=== PATIENT | male | born 1945 | race Hispanic/Latino ===

== ENCOUNTER → 2020-05-01 | Outpatient (CLI) | payer MEDICARE ==
[~2020-05-01] MED LIST: ARTHROTEC EC 71 EACH; CARDIZEM CD240 MG PO; DICLOFENAC SODI75 MG PO; LISINOPRIL-HCT1 EACH PO; METOPROLOL SUCC50 MG PO; REGADENOSON 0.4 MG/5 ML SYR IV ONE
== END ==
LOC: NM 08:39
PROVIDERS: ATTEND Internal Medicine Interventional Cardiology
DX: I25.119 Atherosclerotic heart disease of native coronary artery with unspecified angina pectoris (principal)
CPT/HCPCS: 78452; 93017; A9502; J2785

== ENCOUNTER → 2020-06-05 | Day surgery (SDC) | payer MEDICARE ==
[2020-05-31 12:15] LABS: BASOPHILS % 0.7 % (0.0-1.0); EOSINOPHILS # (AUTO) 0.1 (0.0-0.4); EOSINOPHILS % 2.2 % (0.0-6.0); HEMOGLOBIN 13.1 g/dL (14.0-18.0); LYMPHOCYTES # (AUTO) 1.5 (1.0-3.2); LYMPHOCYTES % 27.5 % (18.0-39.1); MEAN CORPUSCULAR HEMOGLOBIN 29.9 pg (28-32); MEAN CORPUSCULAR HGB CONC 33.6 g/dL (31-35); MONOCYTES # (AUTO) 0.6 (0.2-0.8); MONOCYTES % 10.7 % (4.4-11.3); NEUTROPHILS # (AUTO) 3.2 (2.1-6.9); NEUTROPHILS % 58.5 % (38.7-80.0); PLATELET COUNT 186 x10e3/uL (140-360); RED BLOOD COUNT 4.38 x10e6/uL (4.3-5.7); RED CELL DISTRIBUTION WIDTH 12.8 % (11.7-14.4)
[~2020-06-05] MED LIST changes: +ATORVASTATIN CA20 MG PO; +CLOPIDOGREL75 MG PO; +DIOVAN HCT 1601 EAC1 PO; +FLOMAX0.4 MG PO; +PROTONIX20 MG PO; -REGADENOSON 0.4 MG/5 ML SYR IV ONE
[2020-06-05 15:34] VITALS: BP 119/78
== END | disposition home or self-care (01) ==
LOC: OR 11:26
PROVIDERS: ATTEND Internal Medicine Gastroenterology
DX: K22.70 Barrett's esophagus without dysplasia (principal); D12.0 Benign neoplasm of cecum; D12.3 Benign neoplasm of transverse colon; D12.4 Benign neoplasm of descending colon; K29.50 Unspecified chronic gastritis without bleeding; K31.89 Other diseases of stomach and duodenum; K20.90 Esophagitis, unspecified without bleeding; K44.9 Diaphragmatic hernia without obstruction or gangrene; K57.30 Diverticulosis of large intestine without perforation or abscess without bleeding; K21.9 Gastro-esophageal reflux disease without esophagitis; K64.8 Other hemorrhoids; D50.9 Iron deficiency anemia, unspecified; I44.0 Atrioventricular block, first degree; I25.10 Atherosclerotic heart disease of native coronary artery without angina pectoris; I10 Essential (primary) hypertension; E78.5 Hyperlipidemia, unspecified; M19.90 Unspecified osteoarthritis, unspecified site; Z88.6 Allergy status to analgesic agent; Z01.810 Encounter for preprocedural cardiovascular examination; Z01.812 Encounter for preprocedural laboratory examination; Z20.822 Contact with and (suspected) exposure to COVID-19; Z79.02 Long term (current) use of antithrombotics/antiplatelets; Z95.5 Presence of coronary angioplasty implant and graft; Z80.0 Family history of malignant neoplasm of digestive organs
CPT/HCPCS: 36415; 43239; 45384; 45385; 85025; 93005; U0002; 45378

== ENCOUNTER 2020-08-06 05:20 | Observation (INO) | payer MEDICARE ==
[2020-08-02 12:15] LABS: BASOPHILS % 0.5 % (0.0-1.0); EOSINOPHILS # (AUTO) 0.2 (0.0-0.4); EOSINOPHILS % 2.6 % (0.0-6.0); HEMATOCRIT 40.5 % (38.2-49.6); HEMOGLOBIN 13.1 g/dL (14.0-18.0); LYMPHOCYTES # (AUTO) 1.7 (1.0-3.2); LYMPHOCYTES % 26.6 % (18.0-39.1); MEAN CORPUSCULAR HEMOGLOBIN 29.1 pg (28-32); MEAN CORPUSCULAR HGB CONC 32.3 g/dL (31-35); MONOCYTES # (AUTO) 0.8 (0.2-0.8); MONOCYTES % 12.3 % (4.4-11.3); NEUTROPHILS # (AUTO) 3.6 (2.1-6.9); NEUTROPHILS % 57.8 % (38.7-80.0); PLATELET COUNT 183 x10e3/uL (140-360); RED CELL DISTRIBUTION WIDTH 13.2 % (11.7-14.4)
[2020-08-02 12:34] LABS: ANION GAP 12.9 mmol/L (8-16); BLOOD UREA NITROGEN 20 mg/dL (7-26); BUN/CREATININE RATIO 19 (6-25); CALCIUM 9.1 mg/dL (8.4-10.2); CARBON DIOXIDE 26 mmol/L (22-29); CHLORIDE 104 mmol/L (98-107); CREATININE, SERUM 1.04 mg/dL (0.72-1.25); EST GLOMERULAR FILTRATION RATE > 60 ML/MIN (60-); GLUCOSE 103 mg/dL (74-118); POTASSIUM 3.9 mmol/L (3.5-5.1); SODIUM 139 mmol/L (136-145)
[~2020-08-06] VITALS: Ht 185.4 cm; Wt 99.1 kg
[2020-08-06] MEDS ORDERED: GABAPENTIN 300 MG CAP ONE (06:00)
[2020-08-06] MEDS ORDERED: DEXAMETHASONE SOD PHOS 10 MG/1 ML VIAL ONE (06:00)
[2020-08-06] MEDS ORDERED: CELECOXIB 200 MG CAP ONE (06:00)
[2020-08-06] MEDS ORDERED: CEFAZOLIN SOD 1 GM/NS 50ML 100 ML IV ONE (06:01)
[2020-08-06] MEDS ORDERED: SODIUM CHLORIDE 0.9% 500ML 500 ML ONE (06:03)
[2020-08-06] MEDS ORDERED: VANCOMYCIN HCL 1,000 MG ONE (06:03)
[2020-08-06] MEDS ORDERED: TRANEXAMIC ACID 1,000 MG/10 ML ML ONE (06:03)
[2020-08-06] MEDS ORDERED: KETOROLAC TROMETHAMINE 30 MG/ML VIAL IV PRN (08:00)
[2020-08-06] MEDS ORDERED: DIPHENHYDRAMINE HCL INJ 50 MG/ML VIAL IV PRN (08:00)
[2020-08-06] MEDS ORDERED: HYDROCODONE/APAP 5MG-325MG TAB PO PRN (08:00)
[2020-08-06] MEDS ORDERED: HYDROCODONE/APAP 7.5MG-325MG 1 EA TAB PO PRN (08:00)
[2020-08-06] MEDS ORDERED: ONDANSETRON HCL INJ 2MG/ML 2ML 2 MG/ML VIAL IV PRN (08:00)
[2020-08-06] MEDS ORDERED: ROPIVACAINE 246.25 MG, EPINEPHRINE HCL 1:1000 1ML 0.5 MG, CLONIDINE HCL 0.08 MG, KETORO... INJ ONE ×5 (08:00)
[2020-08-06] MEDS ORDERED: DOCUSATE SODIUM 100 MG CAP PO PRN (08:00)
[2020-08-06] MEDS ORDERED: ACETAMINOPHEN 650 MG SUPP PR PRN (08:00)
[2020-08-06] MEDS ORDERED: FENTANYL CITRATE/PF 100MCG/2 ML INJ ONE ×2 (08:32→13:03)
[2020-08-06] MEDS: CELECOXIB 100 MG CAP PO SCH ×2 (09:00→16:31)
[2020-08-06] MEDS: ASPIRIN 325 MG TAB PO SCH ×2 (09:00→16:31)
[2020-08-06 12:13] VITALS: BP 116/64
[2020-08-06 12:14] VITALS: BP 116/64
[2020-08-06] MEDS: SODIUM CHLORIDE 0.9% 1000ML 1,000 ML IV SCH ×2 (12:35→16:31)
[2020-08-06] MEDS ORDERED: BUPIVACAINE 0.25% 30ML SDV ONE (12:45)
[2020-08-06] MEDS ORDERED: EPINEPHRINE HCL 1:1000 1ML 1 MG/ML AMP ONE (12:45)
[2020-08-06] MEDS ORDERED: MIDAZOLAM HCL 2 MG/2 ML VIAL ONE (13:03)
[2020-08-06] MEDS: PANTOPRAZOLE SOD 40 MG TABEC PO SCH (13:46)
[2020-08-06] MEDS: CEFAZOLIN SOD 1 GM/NS 50ML 50 ML IV SCH ×2 (13:46→21:27)
[2020-08-06] MEDS ORDERED: ACETAMINOPHEN 1000 MG/100 ML IV PRN (14:00)
[2020-08-06 15:56] VITALS: BP 105/61
[2020-08-06] MEDS ORDERED: TAMSULOSIN HCL 0.4 MG CAP PO SCH (17:00)
[2020-08-06] MEDS ORDERED: LIDOCAINE HCL 2% LOCAL INJ 5 ML SDV VIAL INJ ONE (17:16)
[2020-08-06] MEDS ORDERED: SEVOFLURANE INHAL SOLN 250 ML PEN BTL ONE (17:16)
[2020-08-06] MEDS ORDERED: DEXAMETHASONE SOD PHOS INJ 4 MG/ML VIAL ONE (17:16)
[2020-08-06] MEDS ORDERED: ONDANSETRON HCL INJ 2MG/ML 2ML 2 MG/ML VIAL ONE (17:16)
[2020-08-06] MEDS ORDERED: PROPOFOL IV EMULSION 10 MG/ML 20 ML VIAL ONE (17:16)
[2020-08-06] MEDS ORDERED: LIDOCAINE HCL 2% JELLY 5 ML TUBE ONE (17:16)
[2020-08-06 19:49] VITALS: BP 114/71
[2020-08-06 19:51] VITALS: BP 114/71
[2020-08-06] MEDS ORDERED: ZOLPIDEM TARTRATE 5 MG TAB PO PRN (21:00)
[2020-08-07 00:19] VITALS: BP 130/71
[2020-08-07] MEDS: SODIUM CHLORIDE 0.9% 1000ML 1,000 ML IV SCH (03:21)
[2020-08-07 04:00] VITALS: BP 109/53
[2020-08-07 05:29] LABS: HEMATOCRIT 31.2 % (38.2-49.6); HEMOGLOBIN 10.5 g/dL (14.0-18.0)
[2020-08-07] MEDS: CEFAZOLIN SOD 1 GM/NS 50ML 50 ML IV SCH (05:39)
[2020-08-07 08:00] VITALS: BP 132/72
[2020-08-07 08:21] VITALS: BP 132/72
[2020-08-07] MEDS: ASPIRIN 325 MG TAB PO SCH (08:21)
[2020-08-07] MEDS: CELECOXIB 100 MG CAP PO SCH (08:21)
[2020-08-07] MEDS: PANTOPRAZOLE SOD 40 MG TABEC PO SCH (08:21)
[2020-08-07] MEDS ORDERED: DILTIAZEM HCL 300 MG PO SCH (09:00)
[2020-08-07] MEDS ORDERED: ONDANSETRON HCL 4 MG ORAL DISINTEGRATING TAB PO PRN (09:30)
[2020-08-07] MEDS ORDERED: ATORVASTATIN 40 MG TAB PO SCH (09:30)
[2020-08-07 11:49] VITALS: BP 125/71
[2020-08-07] MEDS ORDERED: DILTIAZEM HCL ER 120 MG CAP PO SCH (13:00)
[2020-08-07] MEDS ORDERED: DILTIAZEM HCL 180 MG CAP ER PO SCH (13:00)
== END 2020-08-07 13:15 | disposition home or self-care (01) ==
LOC: OR 05:20 → PACU V 08:01 → MED/SURG 11:48
PROVIDERS: ADMIT Specialist; ATTEND Specialist
DX: M17.0 Bilateral primary osteoarthritis of knee (principal); I10 Essential (primary) hypertension; M16.0 Bilateral primary osteoarthritis of hip; Z20.822 Contact with and (suspected) exposure to COVID-19; Z01.818 Encounter for other preprocedural examination; E78.5 Hyperlipidemia, unspecified
CPT/HCPCS: 27447; 36415 ×2; 71046; 73560; 80048; 85014; 85018; 85025; 86850; 86900; 86920; 97116 ×2; 97161; 97530; G0378 ×2; J0171; J0690 ×2; J1100 ×2; J1885; J2001 ×2; J2250; J2405; J2704; J2795; J3010; J3370; J7030; J7040; S0164 ×2; U0002

== ENCOUNTER 2021-09-02 09:48 | Observation (INO) | payer MEDICARE ==
[2021-08-29 13:35] LABS: BASOPHILS # (AUTO) 0.1 (0.0-0.1); BASOPHILS % 0.8 % (0.0-1.0); EOSINOPHILS # (AUTO) 0.1 (0.0-0.4); EOSINOPHILS % 1.4 % (0.0-6.0); HEMATOCRIT 40.3 % (38.2-49.6); LYMPHOCYTES # (AUTO) 1.4 (1.0-3.2); LYMPHOCYTES % 21.3 % (18.0-39.1); MEAN CORPUSCULAR HEMOGLOBIN 29.8 pg (28-32); MEAN CORPUSCULAR HGB CONC 32.3 g/dL (31-35); MEAN CORPUSCULAR VOLUME 92.4 fL (81-99); MONOCYTES # (AUTO) 0.7 (0.2-0.8); MONOCYTES % 10.6 % (4.4-11.3); NEUTROPHILS # (AUTO) 4.3 (2.1-6.9); NEUTROPHILS % 65.6 % (38.7-80.0); PLATELET COUNT 203 x10e3/uL (140-360); RED BLOOD COUNT 4.36 x10e6/uL (4.3-5.7); RED CELL DISTRIBUTION WIDTH 12.9 % (11.7-14.4)
[2021-08-29 13:50] LABS: ANION GAP 12.7 mmol/L (8-16); CALCIUM 8.5 mg/dL (8.4-10.2); CREATININE, SERUM 0.96 mg/dL (0.72-1.25); POTASSIUM 3.7 mmol/L (3.5-5.1)
[~2021-09-02] VITALS: Ht 185.4 cm; Wt 98.0 kg
[~2021-09-02 09:48] MED LIST changes: +ROPIVACAINE 246.25 MG, EPINEPHRINE HCL 1:1000 1ML 0.5 MG, CLONIDINE HCL 0.08 MG, KETORO... INJ ONE; +SODIUM CHLORIDE 0.9% 500ML 500 ML ONE; +TRANEXAMIC ACID 20 ML ONE; +Vancomycin IV 1,000 MG ONE
[2021-09-02] MEDS ORDERED: CELECOXIB 200 MG CAP ONE (10:06)
[2021-09-02] MEDS ORDERED: DEXAMETHASONE SOD PHOS 10 MG/1 ML VIAL ONE (10:06)
[2021-09-02] MEDS ORDERED: GABAPENTIN 300 MG CAP ONE (10:06)
[2021-09-02] MEDS ORDERED: ACETAMINOPHEN 1000 MG/100 ML IV ONE (12:03)
[2021-09-02] MEDS ORDERED: SEVOFLURANE INHAL SOLN 250 ML PEN BTL ONE (12:03)
[2021-09-02] MEDS ORDERED: POVIDONE IODINE 0.05% 0.05 % ML PO ONE (12:03)
[2021-09-02] MEDS ORDERED: EPHEDRINE SULFATE INJ 50 MG/ML VIAL ONE (12:03)
[2021-09-02] MEDS ORDERED: PROPOFOL IV EMULSION 10 MG/ML 20 ML VIAL ONE (12:03)
[2021-09-02] MEDS ORDERED: LIDOCAINE HCL 2% LOCAL INJ 5 ML SDV VIAL INJ ONE (12:03)
[2021-09-02] MEDS ORDERED: ONDANSETRON HCL INJ 2MG/ML 2ML 2 MG/ML VIAL ONE (12:03)
[2021-09-02] MEDS ORDERED: ROPIVACAINE 0.5% 5 MG/ML 30 ML SDV ONE (12:08)
[2021-09-02] MEDS ORDERED: FENTANYL CITRATE/PF 100MCG/2 ML INJ ONE (12:20)
[2021-09-02] MEDS ORDERED: MIDAZOLAM HCL 2 MG/2 ML VIAL ONE (12:20)
[2021-09-02] MEDS ORDERED: ACETAMINOPHEN 650 MG SUPP PR PRN (12:45)
[2021-09-02] MEDS ORDERED: DIPHENHYDRAMINE HCL INJ 50 MG/ML VIAL IV PRN (12:45)
[2021-09-02] MEDS ORDERED: KETOROLAC TROMETHAMINE 30 MG/ML VIAL IV PRN (12:45)
[2021-09-02] MEDS ORDERED: HYDROCODONE/APAP 7.5MG-325MG 1 EA TAB PO PRN (12:45)
[2021-09-02] MEDS ORDERED: DOCUSATE SODIUM 100 MG CAP PO PRN (12:45)
[2021-09-02] MEDS ORDERED: ONDANSETRON HCL INJ 2MG/ML 2ML 2 MG/ML VIAL IV PRN (12:45)
[2021-09-02] MEDS ORDERED: HYDROCODONE/APAP 5MG-325MG TAB PO PRN (12:45)
[2021-09-02] MEDS ORDERED: ZOLPIDEM TARTRATE 5 MG TAB PO PRN (12:45)
[2021-09-02] MEDS ORDERED: SODIUM CHLORIDE 0.9% 1000ML 1,000 ML IV SCH (12:45)
[2021-09-02 15:55] VITALS: BP 137/82
[2021-09-02 15:56] VITALS: BP 137/82
[2021-09-02 16:42] VITALS: BP 137/82
[2021-09-02] MEDS ORDERED: CELECOXIB 100 MG CAP PO SCH (17:00)
[2021-09-02] MEDS ORDERED: ASPIRIN 325 MG TAB PO SCH (17:00)
[2021-09-02] MEDS ORDERED: ACETAMINOPHEN 1000 MG/100 ML IV PRN (18:00)
[2021-09-02 21:00] VITALS: BP 107/66
== END 2021-09-02 21:07 | disposition home or self-care (01) ==
LOC: OR 09:48 → PACU V 12:56 → MED/SURG 15:14
PROVIDERS: ADMIT Specialist; ATTEND Specialist
DX: M17.0 Bilateral primary osteoarthritis of knee (principal); Z96.652 Presence of left artificial knee joint; I10 Essential (primary) hypertension; Z20.822 Contact with and (suspected) exposure to COVID-19; Z01.818 Encounter for other preprocedural examination
CPT/HCPCS: 27447; 36415; 71046; 73560; 80048; 85025; 86850; 86900; 86920; 93005; 94799; 97110; 97116; 97161; C1713 ×6; C1776 ×2; G0378; J0131; J0171; J0690; J1100; J1885; J2001; J2250; J2405; J2704; J2795; J3010; J3370; J7040; U0002

== ENCOUNTER 2021-11-01 12:07 | Emergency (ER) | payer MEDICARE ==
[~2021-11-01] VITALS: Ht 185.4 cm; Wt 98.0 kg
[~2021-11-01 12:07] MED LIST changes: -ROPIVACAINE 246.25 MG, EPINEPHRINE HCL 1:1000 1ML 0.5 MG, CLONIDINE HCL 0.08 MG, KETORO... INJ ONE; -SODIUM CHLORIDE 0.9% 500ML 500 ML ONE; -TRANEXAMIC ACID 20 ML ONE; -Vancomycin IV 1,000 MG ONE
[2021-11-01] MEDS ORDERED: SODIUM CHLORIDE 0.9% 1000ML 500 ML IV ONE (12:45)
[2021-11-01 13:16] LABS: BASOPHILS % 0.5 % (0.0-1.0); EOSINOPHILS % 0.3 % (0.0-6.0); HEMATOCRIT 38.3 % (38.2-49.6); HEMOGLOBIN 12.1 g/dL (14.0-18.0); LYMPHOCYTES # (AUTO) 0.7 (1.0-3.2); LYMPHOCYTES % 10.3 % (18.0-39.1); MEAN CORPUSCULAR HEMOGLOBIN 29.3 pg (28-32); MEAN CORPUSCULAR HGB CONC 31.6 g/dL (31-35); MEAN CORPUSCULAR VOLUME 92.7 fL (81-99); MONOCYTES # (AUTO) 0.4 (0.2-0.8); MONOCYTES % 6.1 % (4.4-11.3); NEUTROPHILS # (AUTO) 5.3 (2.1-6.9); NEUTROPHILS % 82.3 % (38.7-80.0); PLATELET COUNT 257 x10e3/uL (140-360); RED BLOOD COUNT 4.13 x10e6/uL (4.3-5.7)
[2021-11-01 13:25] LABS: CLARITY,URINE CLEAR (CLEAR); COLOR,URINE YELLOW (YELLOW)
[2021-11-01 13:26] LABS: KETONES,URINE NEGATIVE (NEGATIVE); LEUKOCYTE ESTERASE ,URINE NEGATIVE (NEGATIVE); NITRITE,URINE NEGATIVE (NEGATIVE); PROTEIN,URINE DIPSTICK NEGATIVE (NEGATIVE); RBC,URINE 0-5 /HPF (0-5); URINE UROBILINOGEN 1 mg/dL (0.2 - 1); WBC,URINE (MAN) 0-5 /HPF (0-5)
[2021-11-01 13:27] LABS: BACTERIA,URINE FEW /HPF; EPITHELIAL CELLS,URINE FEW /LPF
[2021-11-01 13:30] LABS: INR 0.98; PROTHROMBIN TIME 13.9 seconds (11.9-14.5)
[2021-11-01 13:39] LABS: ALBUMIN 3.7 g/dL (3.5-5.0); ALBUMIN/GLOBULIN RATIO 1.2 (0.8-2.0); ANION GAP 12.9 mmol/L (8-16); CALCIUM 8.5 mg/dL (8.4-10.2); CREATININE, SERUM 0.93 mg/dL (0.72-1.25); POTASSIUM 3.9 mmol/L (3.5-5.1)
[2021-11-01 14:17] VITALS: BP 121/71
== END 2021-11-01 14:10 | disposition home or self-care (01) ==
LOC: ER 12:18
DX: R53.1 Weakness (principal); I10 Essential (primary) hypertension; I25.10 Atherosclerotic heart disease of native coronary artery without angina pectoris; N40.0 Benign prostatic hyperplasia without lower urinary tract symptoms; E78.5 Hyperlipidemia, unspecified; N28.89 Other specified disorders of kidney and ureter; K21.9 Gastro-esophageal reflux disease without esophagitis; Z88.6 Allergy status to analgesic agent; Z79.02 Long term (current) use of antithrombotics/antiplatelets; Z79.899 Other long term (current) drug therapy; Z95.5 Presence of coronary angioplasty implant and graft; Z95.810 Presence of automatic (implantable) cardiac defibrillator
CPT/HCPCS: 36415; 70450; 71045; 80053; 81001; 84484; 85025; 85610; 93005; 99284; J7030

== ENCOUNTER 2023-02-20 11:55 | Inpatient (IN) | payer MEDICARE ==
[~2023-02-20] VITALS: Ht 185.4 cm; Wt 90.7 kg
[~2023-02-20 11:55] MED LIST changes: +ASPIRIN EC81 MG PO; +CALCIUM ACETAT667 MG PO
[2023-02-20 13:22] LABS: BASOPHILS % 0.7 % (0.0-1.0); EOSINOPHILS # (AUTO) 0.1 (0.0-0.4); EOSINOPHILS % 1.5 % (0.0-6.0); HEMATOCRIT 27.9 % (38.2-49.6); HEMOGLOBIN 9.1 g/dL (14.0-18.0); LYMPHOCYTES # (AUTO) 1.3 (1.0-3.2); LYMPHOCYTES % 24.2 % (18.0-39.1); MEAN CORPUSCULAR HEMOGLOBIN 29.4 pg (28-32); MEAN CORPUSCULAR HGB CONC 32.6 g/dL (31-35); MEAN CORPUSCULAR VOLUME 90.3 fL (81-99); MONOCYTES # (AUTO) 0.5 (0.2-0.8); MONOCYTES % 9.2 % (4.4-11.3); NEUTROPHILS # (AUTO) 3.5 (2.1-6.9); PLATELET COUNT 219 x10e3/uL (140-360); RED BLOOD COUNT 3.09 x10e6/uL (4.3-5.7); RED CELL DISTRIBUTION WIDTH 13.3 % (11.7-14.4); WHITE BLOOD COUNT 5.45 x10e3/uL (4.8-10.8)
[2023-02-20 13:38] LABS: INR 1.06; PROTHROMBIN TIME 14.4 seconds (11.9-14.5)
[2023-02-20 13:39] LABS: PARTIAL THROMBOPLASTIN TIME 35.2 seconds (23.8-35.5)
[2023-02-20 13:48] LABS: ALBUMIN/GLOBULIN RATIO 1.7 (0.8-2.0); ANION GAP 12.2 mmol/L (8-16); CALCIUM 8.7 mg/dL (8.4-10.2); CREATININE, SERUM 1.03 mg/dL (0.72-1.25); POTASSIUM 4.2 mmol/L (3.5-5.1)
[2023-02-20] MEDS ORDERED: LACTATED RINGER'S 1,000 ML INJ ONE (14:00)
[2023-02-20] MEDS ORDERED: IOPAMIDOL 370 MG/ML 100 ML INFUS..BTL INJ ONE (14:06)
[2023-02-20 17:42] VITALS: BP 132/75; PULSE 79; RESP 19; TEMP 98.1; O2SAT 99
[2023-02-20 19:07] VITALS: BP 132/75; PULSE 79; RESP 19; TEMP 98.1; O2SAT 99
[2023-02-20 19:17] VITALS: BP 132/75; PULSE 79; RESP 19; TEMP 98.1; O2SAT 99
[2023-02-20 21:44] VITALS: BP 137/81; PULSE 79; RESP 18; TEMP 97.8; O2SAT 100
[2023-02-21 08:00] VITALS: BP 133/83; PULSE 88; RESP 16; TEMP 98.3; O2SAT 99
[2023-02-21 09:06] VITALS: BP 133/83; PULSE 88; RESP 16; TEMP 98.3; O2SAT 99
[2023-02-21] MEDS: PANTOPRAZOLE SOD 40 MG TABEC PO SCH (09:52)
[2023-02-21] MEDS: VALSARTAN 160 MG TAB PO SCH (09:52)
[2023-02-21] MEDS: ATORVASTATIN 40 MG TAB PO SCH (09:52)
[2023-02-21] MEDS: HYDROCHLOROTHIAZIDE 25 MG TAB PO SCH (09:53)
[2023-02-21 12:48] VITALS: BP 135/75; PULSE 70; RESP 16; TEMP 97.8; O2SAT 100
[2023-02-21 13:29] LABS: BASOPHILS % 0.8 % (0.0-1.0); EOSINOPHILS # (AUTO) 0.1 (0.0-0.4); EOSINOPHILS % 1.6 % (0.0-6.0); HEMATOCRIT 25.7 % (38.2-49.6); HEMOGLOBIN 8.4 g/dL (14.0-18.0); LYMPHOCYTES % 20.3 % (18.0-39.1); MEAN CORPUSCULAR HEMOGLOBIN 29.8 pg (28-32); MEAN CORPUSCULAR HGB CONC 32.7 g/dL (31-35); MEAN CORPUSCULAR VOLUME 91.1 fL (81-99); MONOCYTES # (AUTO) 0.4 (0.2-0.8); MONOCYTES % 8.7 % (4.4-11.3); NEUTROPHILS # (AUTO) 3.4 (2.1-6.9); NEUTROPHILS % 68.4 % (38.7-80.0); PLATELET COUNT 191 x10e3/uL (140-360); RED BLOOD COUNT 2.82 x10e6/uL (4.3-5.7); RED CELL DISTRIBUTION WIDTH 13.5 % (11.7-14.4); WHITE BLOOD COUNT 4.93 x10e3/uL (4.8-10.8)
[2023-02-21 16:53] VITALS: BP 117/71; PULSE 65; RESP 18; TEMP 98.4; O2SAT 100
[2023-02-21 20:00] VITALS: BP 141/79; PULSE 77; RESP 19; TEMP 97.7; O2SAT 98
[2023-02-21 22:08] VITALS: BP 141/79; PULSE 77; RESP 16; TEMP 97.7; O2SAT 98
[2023-02-22] VITALS (7 sets, daily range): BP systolic 113–132; BP diastolic 65–87; PULSE 72–78; RESP 16–20; TEMP 97.5–98.6; O2SAT 98–100
[2023-02-22 00:31] LABS: BASOPHILS % 0.5 % (0.0-1.0); EOSINOPHILS # (AUTO) 0.1 (0.0-0.4); EOSINOPHILS % 2.2 % (0.0-6.0); HEMATOCRIT 26.4 % (38.2-49.6); HEMOGLOBIN 8.8 g/dL (14.0-18.0); LYMPHOCYTES # (AUTO) 1.3 (1.0-3.2); LYMPHOCYTES % 22.2 % (18.0-39.1); MEAN CORPUSCULAR HEMOGLOBIN 29.7 pg (28-32); MEAN CORPUSCULAR HGB CONC 33.3 g/dL (31-35); MEAN CORPUSCULAR VOLUME 89.2 fL (81-99); MONOCYTES # (AUTO) 0.5 (0.2-0.8); MONOCYTES % 8.8 % (4.4-11.3); NEUTROPHILS # (AUTO) 3.9 (2.1-6.9); NEUTROPHILS % 66.1 % (38.7-80.0); PLATELET COUNT 212 x10e3/uL (140-360); RED BLOOD COUNT 2.96 x10e6/uL (4.3-5.7); RED CELL DISTRIBUTION WIDTH 13.3 % (11.7-14.4); WHITE BLOOD COUNT 5.91 x10e3/uL (4.8-10.8)
[2023-02-22 05:40] LABS: HEMATOCRIT 26.2 % (38.2-49.6); HEMOGLOBIN 8.6 g/dL (14.0-18.0); MEAN CORPUSCULAR HEMOGLOBIN 29.5 pg (28-32); MEAN CORPUSCULAR HGB CONC 32.8 g/dL (31-35); MEAN CORPUSCULAR VOLUME 89.7 fL (81-99); PLATELET COUNT 214 x10e3/uL (140-360); RED BLOOD COUNT 2.92 x10e6/uL (4.3-5.7); RED CELL DISTRIBUTION WIDTH 13.2 % (11.7-14.4)
[2023-02-22 06:36] LABS: ANION GAP 10.5 mmol/L (8-16); CALCIUM 8.6 mg/dL (8.4-10.2); CREATININE, SERUM 0.89 mg/dL (0.72-1.25); POTASSIUM 3.5 mmol/L (3.5-5.1)
[2023-02-22] MEDS: PANTOPRAZOLE SOD 40 MG TABEC PO SCH (07:33)
[2023-02-22] MEDS: HYDROCHLOROTHIAZIDE 25 MG TAB PO SCH (07:43)
[2023-02-22] MEDS: ATORVASTATIN 40 MG TAB PO SCH (07:43)
[2023-02-22] MEDS: VALSARTAN 160 MG TAB PO SCH (07:44)
[2023-02-22 11:31] LABS: EOSINOPHILS % (MANUAL) 2 % (0-7); LYMPHOCYTES % (MANUAL) 15 % (19-48); MONOCYTES % (MANUAL) 3 % (3.4-9.0); NEUTROPHILS % (MANUAL) 79 % (40-74); PLATELET ESTIMATE ADEQUATE; PLATELET MORPHOLOGY COMMENT NORMAL
[2023-02-23] VITALS: BP 112/77; PULSE 74; RESP 19; TEMP 98.4; O2SAT 100
[2023-02-23 04:00] VITALS: BP 117/70; PULSE 80; RESP 19; TEMP 98.3; O2SAT 98
[2023-02-23 08:38] VITALS: BP 142/78; PULSE 109; RESP 19; TEMP 97.9; O2SAT 99
[2023-02-23 08:45] VITALS: BP 142/78; PULSE 109; RESP 19; TEMP 97.9; O2SAT 99
[2023-02-23] MEDS: VALSARTAN 160 MG TAB PO SCH (08:46)
[2023-02-23] MEDS: HYDROCHLOROTHIAZIDE 25 MG TAB PO SCH (08:46)
[2023-02-23] MEDS: PANTOPRAZOLE SOD 40 MG TABEC PO SCH (08:46)
[2023-02-23] MEDS: ATORVASTATIN 40 MG TAB PO SCH (08:47)
[2023-02-23 11:51] VITALS: BP 106/70; PULSE 70; RESP 15; TEMP 98; O2SAT 99
[2023-02-23 15:59] VITALS: BP 111/64; PULSE 72; RESP 16; TEMP 98.3; O2SAT 100
== END 2023-02-23 18:03 | disposition home or self-care (01) | DRG 378 ==
LOC: ER 12:10 → ERHOLD 14:06 → MED/SURG2 16:25
PROVIDERS: ADMIT Internal Medicine; ATTEND Internal Medicine
DX: K62.5 Hemorrhage of anus and rectum (principal); D62 Acute posthemorrhagic anemia; I25.10 Atherosclerotic heart disease of native coronary artery without angina pectoris; I10 Essential (primary) hypertension; E78.5 Hyperlipidemia, unspecified; K57.90 Diverticulosis of intestine, part unspecified, without perforation or abscess without bleeding; K21.9 Gastro-esophageal reflux disease without esophagitis; N40.0 Benign prostatic hyperplasia without lower urinary tract symptoms; M19.90 Unspecified osteoarthritis, unspecified site; K44.9 Diaphragmatic hernia without obstruction or gangrene; D50.9 Iron deficiency anemia, unspecified; Z20.822 Contact with and (suspected) exposure to COVID-19; Z86.010 Personal history of colon polyps; Z95.810 Presence of automatic (implantable) cardiac defibrillator; Z95.5 Presence of coronary angioplasty implant and graft; Z79.02 Long term (current) use of antithrombotics/antiplatelets
CPT/HCPCS: 36415; 71045; 74174; 80048; 80053; 82550; 83735; 84484; 85007; 85025; 85027; 85610; 85730; 86850; 86900; 86920; 93005; 99284; Q9967; U0002

== ENCOUNTER → 2024-02-12 | Day surgery (SDC) | payer MEDICARE ==
[2024-01-27 09:41] LABS: BASOPHILS % 0.5 % (0.0-1.0); EOSINOPHILS # (AUTO) 0.1 (0.0-0.4); EOSINOPHILS % 0.9 % (0.0-6.0); HEMATOCRIT 39.3 % (38.2-49.6); HEMOGLOBIN 11.7 g/dL (14.0-18.0); LYMPHOCYTES # (AUTO) 1.3 (1.0-3.2); LYMPHOCYTES % 20.5 % (18.0-39.1); MEAN CORPUSCULAR HEMOGLOBIN 26.9 pg (28-32); MEAN CORPUSCULAR HGB CONC 29.8 g/dL (31-35); MEAN CORPUSCULAR VOLUME 90.3 fL (81-99); MONOCYTES # (AUTO) 0.6 (0.2-0.8); MONOCYTES % 9.6 % (4.4-11.3); NEUTROPHILS # (AUTO) 4.4 (2.1-6.9); NEUTROPHILS % 68.2 % (38.7-80.0); PLATELET COUNT 170 x10e3/uL (140-360); RED BLOOD COUNT 4.35 x10e6/uL (4.3-5.7); RED CELL DISTRIBUTION WIDTH 18.1 % (11.7-14.4); WHITE BLOOD COUNT 6.48 x10e3/uL (4.8-10.8)
[~2024-02-12] MED LIST changes: +GLUCAGON FOR INJ 1 MG VIAL ONE; +LIDOCAINE HCL 2% LOCAL INJ 5 ML SDV VIAL INJ ONE; +METFORMIN HCL500 MG PO; +PROPOFOL IV EMULSION 10 MG/ML 20 ML VIAL ONE
[2024-02-12 14:30] VITALS: BP 128/84; PULSE 77; RESP 16; O2SAT 98
== END | disposition home or self-care (01) ==
LOC: OR 11:29
PROVIDERS: ATTEND Internal Medicine Gastroenterology
DX: Z09 Encounter for follow-up examination after completed treatment for conditions other than malignant neoplasm (principal); D12.0 Benign neoplasm of cecum; D12.4 Benign neoplasm of descending colon; D12.3 Benign neoplasm of transverse colon; K57.30 Diverticulosis of large intestine without perforation or abscess without bleeding; K62.89 Other specified diseases of anus and rectum; K64.8 Other hemorrhoids; Z80.0 Family history of malignant neoplasm of digestive organs; I10 Essential (primary) hypertension; I25.10 Atherosclerotic heart disease of native coronary artery without angina pectoris; I25.2 Old myocardial infarction; Z95.5 Presence of coronary angioplasty implant and graft; E78.5 Hyperlipidemia, unspecified; N40.0 Benign prostatic hyperplasia without lower urinary tract symptoms; E11.9 Type 2 diabetes mellitus without complications; Z79.84 Long term (current) use of oral hypoglycemic drugs; Z79.01 Long term (current) use of anticoagulants; Z79.899 Other long term (current) drug therapy; Z79.82 Long term (current) use of aspirin; Z79.02 Long term (current) use of antithrombotics/antiplatelets
CPT/HCPCS: 36415; 45380; 45381; 45385; 85025; 93005; J1610; J2003; J2704